=== PATIENT | female | born 1970 | race Caucasian/White ===

== ENCOUNTER 2018-01-13 09:21 | Emergency (ER) | payer BC ==
--- NOTE | 2018-01-13 10:04 | ED Physician Documentation ---
Chest Pain - HISTORIAN Historian: patient, spouse - HPI Stated Complaint: right rib pain Chief Complaint: Chest Pain Additional Information: pt awoke this am w rt low rib and rt assoc back pain. no known trauma or prev similar problem Timing: other (awoke) Duration: constant, waxing, waning (worse w/ deep breath) Last known Well Date: 01/13/18 Last Known Well Time: 07:00 Context: sleep Severity: moderate Quality: sharp Chest Pain Radiation: no radiation Chest Pain Signs/Symptoms: nausea. denies: vomiting, diaphoresis, cool extremities, dizziness, dyspnea Worsened By: deep breaths Relieved By: nothing ( took robaxin 750--drowsy only) - ROS CONST: none EYES/ENT: none SKIN/ENDO: none NEURO/PSYCH: headache (has hx mc) - PAST HX IA risk factors: no pertinent history, other (pt has rheumatoid and had 2 neck surgeries and has freq radicular pain to lt fingers. also occ migraine as above plus the deg disc disease as above) DVT/PE Risk Factors: none TAD/AAA risk factors: none Neuro deficit: other (as above) GI disease: none Lung disease: none Allergies/Adverse Reactions: Allergies Allergy/AdvReac Type Severity Reaction Status Date / Time No Known Allergies Allergy Verified 01/19/15 20:45 Home Medications: Ambulatory Orders Medication Instructions Recorded Hydroxychloroquine Sulfate 200 mg PO 2 tablets daily u2 11/30/15 Leflunomide 20 mg PO DAILY u2 11/30/15 Azithromycin 500 mg PO D #5 tablet 01/13/18 Methocarbamol [Robaxin-750] 750 mg PO TID 01/13/18 Nabumetone [Relafen] 750 mg PO BID 01/13/18 - SOCIAL HX Smoking History: non-smoker Alcohol Use: none - FAMILY HX Family HX: none - VITAL SIGNS Vital Signs: Vital Signs Temp Pulse Resp BP Pulse Ox 98.1 F 76 17 96/46 99 01/13/18 09:35 01/13/18 09:35 01/13/18 09:35 01/13/18 09:35 01/13/18 09:35 - REVIEWED ASSESSMENTS Nursing Assessment Reviewed: Yes Vitals Reviewed: Yes ED Results Lab/Radiology - Radiology Radiology Impressions: cxr reveals consolidation lower aspect rt upper lobe lung - Orders Orders: ED Orders Category Date Time Status CHEST 2VIEW [RAD] Stat Exams 01/13/18 Ordered Ketorolac Tromethamine [Toradol] Med 01/13/18 10:00 Discontinued 60 mg .ROUTE .STK-MED ONE Ketorolac Tromethamine [Toradol] Med 01/13/18 09:59 Once 60 mg IM NOW ONE Chest Pain Physical Exam - EXAM General Appearance: moderate distress EENT: eye inspection normal Neck: nml inspection, no carotid bruit Respiratory: no resp. distress, nml breath sounds, manifests distinct pain on movement (moreso w/ deep breath). No: chest non-tender, resp.distress CVS: reg. rate & rhythm, no murmur Abdomen: soft, non-tender Skin: warm/dry, normal color. No: cyanosis, diaphoresis, jaundice, mottled Extremities: non-tender, normal range of motion Neuro: oriented X3 Discharge Clincal Impression: rt upper lobe pneumonia, non tender nodular mass rt axilla, rt dorsal para spinal muscular musc spas, palp tenderness rt 11th rib Prescriptions: Azithromycin 500 mg PO D #5 tablet Referrals: Marley Garvin MD [Primary Care Provider] - 2 Days Comments: azithromycin for pneumonic consolidation. strong rec mammography breasts, poss exc biopsy rt axillary node. must f/u w/pcp..rec ibu 600 tid Condition: Fair Disposition: 01 HOME, SELF-CARE Decision to Admit: NO Decision Time: 11:27
[2018-01-13] MEDS: KETOROLAC TROMETHAMINE 60 MG/2 ML VIAL IM ONE (10:05)
[2018-01-13] MEDS: KETOROLAC TROMETHAMINE 60 MG/2 ML VIAL ONE (10:05)
--- NOTE | 2018-01-13 11:01 | Diagnostic Imaging Report ---
TAJ BURTON [facility] [address] [facility].[address] [address] Report Submission Date: January 13, 2018 10:48:50 AM CDT Patient Study Name: WILMER PARKS Date: January 13, 2018 10:17:31 AM CDT Modality Type: DX Gender: F Description: CHEST : 68 Institution: [facility] Physician: TAJ BURTON Examination: PA and lateral chest. History: chest pain x 3 hours (Hx) Comparison exam: None provided. Findings: PA lateral chest demonstrate a normal cardiac and mediastinal silhouette. Moderate consolidative process involving the inferior margin of the right upper lung. No blunting of the costophrenic margins. Calcified hilar granuloma. Osseous structures are appropriate for age. Impression: Moderate sized right upper lung pneumonic infiltrate. Electronically signed on January 13, 2018 10:48:50 AM CDT by: Fransico NAJERA
[2018-01-13 11:33] VITALS: BP 100/57
== END 2018-01-13 11:25 | disposition home or self-care (01) ==
LOC: ED 09:21
DX: J18.9 Pneumonia, unspecified organism (principal); R22.9 Localized swelling, mass and lump, unspecified; M62.838 Other muscle spasm; R07.81 Pleurodynia
CPT/HCPCS: 71046; J1885; 96372

== ENCOUNTER 2018-02-05 12:19 | Outpatient (CLI) | payer BC | END 2018-02-05 12:20 | LOC: LAB 12:19 | PROVIDERS: ATTEND Family Medicine | DX: E04.1 Nontoxic single thyroid nodule (principal) | CPT/HCPCS: 36415; 84443 ==